=== PATIENT | female | born 1990 | race Caucasian/White ===

== ENCOUNTER → 2016-08-08 | Outpatient (CLI) | payer OTHER ==
[~2016-08-08] MED LIST: CONRAY-43 43% 50ML VIAL (Q9960) As Ordered ONE; LIDOCAINE 1% MDV 20ML VIAL As Ordered ONE; TRIAMCINOLONE ACETONIDE SUSP 40 MG/ML VIAL (J3301) As Ordered ONE
--- NOTE | 2016-08-08 16:44 | REP ---
RIGHT HIP INJECTION: The procedure was performed under the direct supervision of Dr. Lazaro. The benefits and risks including but not limited to pain, infection, bleeding, and anaphylaxis were explained to the patient and informed consent was obtained. The right femoral neck was localized using fluoroscopic guidance. The skin was prepped and draped in a sterile fashion. 1% Lidocaine was used as a local anesthetic. Using fluoroscopic guidance a 22-gauge spinal needle was inserted and then advanced to the femoral neck. 1 mL of Conray-43 was injected to verify placement. 10 mL of a solution containing 9 mL of 1% Lidocaine and 1 mL of Kenalog 40 mg was injected. The needle was then removed. The patient tolerated the procedure well and there were no immediate complications. 2 second of fluoroscopic time was utilized for this procedure. Reviewed by RHIANNA Hardy 08/09/2016 03:26 PEdited and Signed by Cristopher Lazaro MD 08/09/2016 04:25 P
== END ==
LOC: M RADPRO 09:07
DX: M25.551 Pain in right hip (principal)
CPT/HCPCS: 20610; 77002; J3301; Q9960

== ENCOUNTER 2017-04-08 09:41 | Emergency (ER) | payer OTHER ==
[~2017-04-08] VITALS: Ht 154.9 cm; Wt 78.2 kg
[2017-04-08] MEDS ORDERED: LAMO10TA PO (09:53)
[2017-04-08] MEDS ORDERED: BCP PO (09:55)
[2017-04-08 12:18] LABS: BASO # 0.1 10^3/uL (0.0-0.2); BASO % 0.4 % (0.0-1.0); EOS # 0.1 10^3/uL (0.0-0.50); EOS % 1.1 % (0.0-3.0); IMMATURE GRANULOCYTE % 0.4 % (0-0); LYMPH % 17.8 % (24.0-44.0); MEAN CORPUSCULAR HEMOGLOBIN 32.6 pg (27.0-33.0); MEAN CORPUSCULAR VOLUME 93.1 fl (80.0-96.0); MONO # 0.7 10^3/uL (0.0-0.8); MONO % 6.6 % (0.0-5.0); NEUTROPHILS # 8.2 10^3/uL (1.8-7.7); NEUTROPHILS % 73.7 % (36.0-66.0); PLATELET COUNT, AUTOMATED 249 10^3/uL (150-450); RED CELL DISTRIBUTION WIDTH 12.8 % (11.5-14.5); WHITE BLOOD COUNT 11.1 10^3/uL (4.0-10.0)
[2017-04-08 12:48] LABS: ALBUMIN 3.6 GM/DL (3.2-5.2); ALBUMIN/GLOBULIN RATIO 1.09 (1.00-1.93); ALKALINE PHOSPHATASE 56 U/L (45-117); ALT/SGPT 28 U/L (12-78); ANION GAP 6 MEQ/L (8-16); AST/SGOT 11 U/L (15-37); BILIRUBIN,TOTAL 0.3 MG/DL (0.2-1.0); BLOOD UREA NITROGEN 11 MG/DL (7-18); CALCIUM LEVEL 8.7 MG/DL (8.5-10.1); CARBON DIOXIDE LEVEL 26 MEQ/L (21-32); CHLORIDE LEVEL 107 MEQ/L (98-107); CREATININE FOR GFR 0.66 MG/DL (0.55-1.02); GLOMERULAR FILTRATION RATE > 60.0 (>60); GLUCOSE, FASTING 90 MG/DL (70-105); HCG, SERUM QUANTITATIVE 799 MIU/ML; POTASSIUM SERUM 3.8 MEQ/L (3.5-5.1); SODIUM LEVEL 139 MEQ/L (136-145); TOTAL PROTEIN 6.9 GM/DL (6.4-8.2)
[2017-04-08 14:01] VITALS: BP 160/83
--- NOTE | 2017-04-08 15:24 | REP ---
EMERGENCY FIRST TRIMESTER OBSTETRIC SONOGRAPHY: HISTORY: Cramping. Vaginal bleeding. 7-8 weeks. Right adnexal pain. FINDINGS: Transabdominal and transvaginal scanning. Uterine dimensions are 8.8 x 4.6 x 4.6 cm. Endometrial echo is 0.8 cm thick. Uterus is anteverted. No evidence of intrauterine gestational sac is seen either transabdominally or transvaginally. No free fluid is noted. Right ovarian dimensions are 2.5 x 2.0 x 3.0 cm. There is a 1.7 x 1.5 x 1.4 cm hemorrhagic cyst in the right ovary. The left ovary measures 2.8 x 2.6 x 2.4 cm. There is a 2.3 x 2.0 x 2.1 cm follicle cyst in the left ovary. IMPRESSION: Nonspecific sonographic findings: No intrauterine gestation seen. No free fluid or adnexal mass seen. Clinical and possibly sonographic followup advised. Cannot completely exclude ectopic . Signed by Cristopher Lazaro MD 04/08/2017 05:29 P
== END 2017-04-08 14:00 | disposition home or self-care (01) ==
LOC: M ED 09:41
DX: O20.8 Other hemorrhage in early pregnancy (principal); Z87.59 Personal history of other complications of pregnancy, childbirth and the puerperium; Z3A.00 Weeks of gestation of pregnancy not specified; Z79.899 Other long term (current) drug therapy; Z79.3 Long term (current) use of hormonal contraceptives; Z88.5 Allergy status to narcotic agent

== ENCOUNTER 2017-04-14 15:45 | Day surgery (SDC) | payer OTHER ==
[~2017-04-14] VITALS: Ht 154.9 cm; Wt 79.9 kg
[~2017-04-14 15:45] MED LIST changes: +BCP PO; -CONRAY-43 43% 50ML VIAL (Q9960) As Ordered ONE; +LAMO10TA PO; -LIDOCAINE 1% MDV 20ML VIAL As Ordered ONE; -TRIAMCINOLONE ACETONIDE SUSP 40 MG/ML VIAL (J3301) As Ordered ONE
[2017-04-14] MEDS ORDERED: NS 1,000 ML IV SCH (16:46)
[2017-04-14] MEDS ORDERED: MORPHINE 2 MG/ML 1ML SYRINGE IV ONE (17:00)
[2017-04-14] MEDS ORDERED: ONDANSETRON 4 MG ORAL DISINTEGRATING TAB (S0181) PO ONE (17:00)
[2017-04-14 17:18] LABS: BASO % 0.4 % (0.0-1.0); EOS # 0.2 10^3/uL (0.0-0.50); EOS % 1.8 % (0.0-3.0); IMMATURE GRANULOCYTE % 0.3 % (0-0); LYMPH # 1.8 10^3/uL (1.5-6.5); LYMPH % 19.1 % (24.0-44.0); MEAN CORPUSCULAR HEMOGLOBIN 32.5 pg (27.0-33.0); MEAN CORPUSCULAR HGB CONC 34.8 g/dl (32.0-36.5); MEAN CORPUSCULAR VOLUME 93.2 fl (80.0-96.0); MONO # 0.6 10^3/uL (0.0-0.8); NEUTROPHILS # 6.8 10^3/uL (1.8-7.7); NEUTROPHILS % 72.4 % (36.0-66.0); PLATELET COUNT, AUTOMATED 249 10^3/uL (150-450); RED CELL DISTRIBUTION WIDTH 12.7 % (11.5-14.5); WHITE BLOOD COUNT 9.4 10^3/uL (4.0-10.0)
[2017-04-14] MEDS ORDERED: BUPIVACAINE/EPIN 0.25% 30 ML VIAL As Ordered ONE (18:31)
[2017-04-14] MEDS ORDERED: BUPIVACAINE HCL 0.25% 30 ML VIAL As Ordered ONE (18:31)
[2017-04-14] MEDS ORDERED: ROCURONIUM BROMIDE 50 MG/5 ML VIAL/SYRINGE As Ordered ONE (19:47)
[2017-04-14] MEDS ORDERED: NEOSTIGMINE 10 MG/10 ML VIAL (J2710) As Ordered ONE (19:47)
[2017-04-14] MEDS ORDERED: PROPOFOL 200 MG/20 ML VIAL As Ordered ONE (19:47)
[2017-04-14] MEDS ORDERED: LIDOCAINE 2% INJ 100 MG/5 ML SDV (FOR ANES.) As Ordered ONE (19:47)
[2017-04-14] MEDS ORDERED: dexameTHASONE 4 MG/ML 1ML VIAL (J1100) As Ordered ONE (19:47)
[2017-04-14] MEDS ORDERED: HYDROmorphone HCL 2 MG/ML 1ML VIAL (J1170) As Ordered ONE (19:47)
[2017-04-14] MEDS ORDERED: GLYCOPYRROLATE INJ 0.2 MG/ML 2 ML VIAL As Ordered ONE (19:47)
[2017-04-14] MEDS ORDERED: fentaNYL 250 MCG/5 ML INJECTION (J3010) As Ordered ONE (19:47)
[2017-04-14] MEDS ORDERED: KETOROLAC 60 MG/2 ML VIAL (J1885) As Ordered ONE (19:47)
[2017-04-14] MEDS ORDERED: MIDAZOLAM INJ 2 MG/2 ML VIAL (J2250) As Ordered ONE (19:47)
[2017-04-14] MEDS ORDERED: SUCCINYLCHOLINE 100 MG/5 ML SYRINGE (J0330) As Ordered ONE (19:47)
[2017-04-14] MEDS ORDERED: ONDANSETRON 4MG/2ML VIAL (J2405) As Ordered ONE (19:47)
[2017-04-14] MEDS ORDERED: ONDANSETRON 4MG/2ML VIAL (J2405) IV PRN (20:30)
[2017-04-14] MEDS ORDERED: LR 1,000 ML IV SCH ×2 (20:30)
[2017-04-14] MEDS ORDERED: MEPERIDINE INJ 25 MG/ML VIAL (J2175) IV PRN (20:30)
[2017-04-14] MEDS ORDERED: METOCLOPRAMIDE INJ 10MG/2ML VIAL (J2765) IV PRN (20:30)
[2017-04-14] MEDS: fentaNYL 100 MCG/2 ML INJECTION (J3010) IV PRN ×4 (20:43→20:58)
[2017-04-14] MEDS: PERCOCET 5MG/325MG TAB PO PRN ×2 (20:43→22:23)
[2017-04-14] MEDS ORDERED: PERCOCET 5MG/325MG TAB As Ordered ONE (22:12)
[2017-04-14 23:30] VITALS: BP 114/60
--- NOTE | 2017-04-15 13:28 | REP ---
First trimester obstetric ultrasound, emergency room request, transabdominal, endovaginal and Doppler ultrasound assessment: Comparison is 04/08/2017. The bladder is suboptimally distended. The uterus is anteverted. There is no intrauterine gestational sac. The ovaries are normal size. Right ovary measures 2.8 x 1.5 x 1.4 centimeters. The left ovary measures 3.5 x 2.6 x 2.2 cm. There is a 1.8 cm left ovarian follicle. There is vascular flow in both ovaries with the Doppler resistive index of the intraparenchymal arteries on the right measuring 0.49, left 0.48. However, there is a complex 3.6 x 2.2 cm mass interposed between the ovary and uterus compatible with ectopic gestation versus hematoma. Small amount of free fluid is noted in both right and left adnexa. Impression: No intrauterine gestation. Right adnexal mass interposed between the ovary, uterus, compatible with ectopic gestation versus hematoma. 1.8 centimeter left ovarian follicle. Small volume of free fluid in both right and left. Signed by Trav Kaur MD 04/15/2017 01:20 P
== END 2017-04-14 23:40 | disposition home or self-care (01) ==
LOC: M ED 15:45 → M OPP 18:17
PROVIDERS: ATTEND Obstetrics & Gynecology
DX: N70.11 Chronic salpingitis (principal); O00.90 Unspecified ectopic pregnancy without intrauterine pregnancy; J45.909 Unspecified asthma, uncomplicated; F17.210 Nicotine dependence, cigarettes, uncomplicated; F31.9 Bipolar disorder, unspecified; Z79.51 Long term (current) use of inhaled steroids
CPT/HCPCS: 58661; 59151; 76801; 76817; 84702; 85025; 86850; 86900; 86901; 88305; 93976; 96361; 96374; 99284; J0330; J1100; J1170; J1885; J2250; J2405; J2710; J3010